=== PATIENT | male | born 1995 | race African-American/Black ===

== ENCOUNTER 2016-09-17 22:13 | Emergency (ER) | payer OTHER ==
[~2016-09-17] VITALS: Ht 180.3 cm; Wt 78.0 kg
[~2016-09-17 22:13] MED LIST: AMPH1TAB33 PO; NAPR250T57 PO; TYLE3 PO
[2016-09-17 22:15] VITALS: BP 131/73; PULSE 60; RESP 14; TEMP 98.3; O2SAT 100
[2016-09-17] MEDS ORDERED: LIDOCAINE HCL 1% 50 ML VIAL IM ONE (22:30)
[2016-09-17] MEDS ORDERED: AZITHROMYCIN PWD FOR SUSP 1 GM PACKET PO ONE (22:30)
[2016-09-17] MEDS ORDERED: cefTRIAXone 250 MG VIAL IM ONE (22:30)
--- NOTE | 2016-09-17 22:47 | PD ---
HPI Chief Complaint: Complaint Time Seen by Provider: 22:38 Travel History International Travel<30 days: No Contact w/Intl Traveler<30days: No Traveled to known affect area: No History of Present Illness HPI 21-year-old black male presents to emergency department for evaluation of a urethral discharge. He states that he is concerned that his girlfriend has been unfaithful with him. He states that he was told that she had intercourse with another male last week after they had had a fight. They've had sex since then without a condom. He denies any rashes or lesions. He does have increased urinary frequency and dysuria as well as a white urethral discharge. No fever chills. No nausea vomiting. No abdominal pain. PFSH Past Medical History ADHD: Yes Developmental Delay: No Diminished Hearing: No Immunizations Current: Yes Tetanus Vaccination: < 5 Years Past Surgical History Surgical History: No Previous Surgery Social History Alcohol Use: No Tobacco Use: No Substance Use: No Allergies-Medications (Allergen,Severity, Reaction): Coded Allergies: No Known Allergies (Verified , 09/17/16) Reported Meds & Prescriptions Reported Meds & Active Scripts Active Naprosyn (Naproxen) 250 Mg Tab 250 Mg PO BID 5 Days Tylenol #3 (Acetaminophen/Codeine Phosphate) 300 Mg/30 Mg Tab 1 Tab PO Q4HPRN FOR PAIN Reported Adderall (Amphetamine/Dextroamphetamine) 10 Mg Tab 10 Mg PO Review of Systems Except as stated in HPI: all other systems reviewed are Neg Physical Exam Narrative GENERAL: This is a well-nourished, well-developed patient, in no apparent distress. SKIN: No rashes, ecchymoses or lesions. Warm and dry. HEAD: Atraumatic. Normocephalic. EYES: PERRL, EOMI, no discharge or injection. No scleral icterus. EARS: Clear NOSE: Nasal turbinates appear normal. THROAT: Mucosa pink and moist. Airway patent. NECK: Trachea midline. supple, moves head freely. LUNGS: Clear to auscultation. CV: Regular in rhythm. ABDOMEN: Soft nontender. EXT: No clubbing cyanosis or edema. GENITOURINARY: Circumcised. Testes descended bilaterally without evidence of rotation. No lesions or erythema. Positive beige urethral discharge. Data Data Last Documented VS Vital Signs Date Time Temp Pulse Resp B/P Pulse Ox O2 Delivery O2 Flow Rate FiO2 09/17/16 22:15 98.3 60 14 131/73 100 Room Air Orders Urinalysis - C+S If Indicated (09/17/16 22:27) Gc And Chlamydia Pcr (09/17/16 22:27) Azithromycin Powd Pack (Zithromax Powd P (09/17/16 22:30) Ceftriaxone Inj (Rocephin Inj) (09/17/16 22:30) Lidocaine 1% Inj (50 Ml) (Xylocaine 1% I (09/17/16 22:30) MDM Medical Decision Making Medical Screen Exam Complete: Yes Emergency Medical Condition: Yes Medical Record Reviewed: Yes Differential Diagnosis MDM: Moderate Differential diagnoses: Chlamydia, gonorrhea, syphilis, chancroid, hepatitis, HIV, herpes Narrative Course Patient is given Rocephin 250 IM and Zithromax 1 g by mouth. This is urethritis Diagnosis Primary Impression: Urethritis Patient Instructions: General Instructions Additional Instructions: Rest. Partner notification. Follow-up with the [facility] Department for further STD testing such as HIV, syphilis and hepatitis. No intercourse until all partners treated. Always use a condom. Return to the ER if any problems. Med/Other Pt SpecificInfo: No Meds Exist/No RX given Disposition: 01 DISCHARGE HOME Condition: Arcadio Ibarra September 17, 2016 22:47
[2016-09-17 23:18] LABS: BLOOD, URINE TRACE (NEG); COMMENT (UR) CULTURE INDICATED; CULTURE IF INDICATED CULTURE INDICATED; GLUCOSE,URINE NEG (NEG); KETONE, URINE NEG (NEG); MUCUS URINE MANY /lpf (OCC); NITRITE,URINE NEG (NEG); URINE COLOR YELLOW (YELLW/STRAW)
[2016-09-18 03:07] LABS: CHLAMYDIA PCR NOT DETECTED (NOT DETECT); NEISSERIA PCR DETECTED (NOT DETECT)
== END 2016-09-17 22:56 | disposition home or self-care (01) ==
LOC: NEPD 22:13
DX: N34.2 Other urethritis (principal)
CPT/HCPCS: 81001; 87086; 87491; 87591; 96372; 99283; J0696

== ENCOUNTER 2016-10-18 20:30 | Emergency (ER) | payer SELFPAY ==
[2016-10-18 20:32] VITALS: BP 139/67; PULSE 61; RESP 16; TEMP 98.6; O2SAT 99
== END 2016-10-18 20:53 | disposition left against medical advice (07) ==
LOC: NED 20:30
DX: M25.569 Pain in unspecified knee (principal)
CPT/HCPCS: 99281

== ENCOUNTER 2017-09-06 21:05 | Emergency (ER) | payer SELFPAY ==
[~2017-09-06] VITALS: Ht 172.7 cm; Wt 65.0 kg
[2017-09-06 21:49] VITALS: BP 125/87; PULSE 61; RESP 16; TEMP 98.9; O2SAT 100
--- NOTE | 2017-09-06 22:53 | PD ---
HPI Chief Complaint: Oral / Dental Pain or Problem Time Seen by Provider: 22:49 Travel History International Travel<30 days: No Contact w/Intl Traveler<30days: No Traveled to known affect area: No History of Present Illness HPI 22-year-old male presents emergency department for evaluation of right third molar pain. Patient states he has had a bad tooth for an unknown amount of time. Pain has began to worse over the last 2-3 days. He is concerned he may have an abscess. Pain is constant, throbbing, 6 out of 10. Denies any trauma. No fever chills. He has no other symptoms to report. PFSH Past Medical History Medical History: Denies Significant Hx ADHD: Yes Developmental Delay: No Diminished Hearing: No Immunizations Current: Yes Tetanus Vaccination: Unknown Past Surgical History Surgical History: No Previous Surgery Social History Alcohol Use: Yes (occasionally) Tobacco Use: No Substance Use: No Allergies-Medications (Allergen,Severity, Reaction): Coded Allergies: No Known Allergies (Verified Adverse Reaction, Unknown, 09/06/17) Reported Meds & Prescriptions Reported Meds & Active Scripts Active Peridex Liq (Chlorhexidine Gluconate (Mouth) Liq) 0.12% Soln 15 Ml SWISH-SPIT BID Ibuprofen 600 Mg Tab 600 Mg PO Q8HR PRN Penicillin V Potassium 500 Mg Tab 500 Mg PO Q8H 10 Days Naprosyn (Naproxen) 250 Mg Tab 250 Mg PO BID 5 Days Tylenol #3 (Acetaminophen/Codeine Phosphate) 300 Mg/30 Mg Tab 1 Tab PO Q4HPRN FOR PAIN Reported Adderall (Amphetamine/Dextroamphetamine) 10 Mg Tab 10 Mg PO Review of Systems Except as stated in HPI: all other systems reviewed are Neg Physical Exam Narrative GENERAL: Well-nourished, well-developed male patient in no acute distress SKIN: Focused skin assessment warm/dry. HEAD: Normocephalic. No erythema or edema EYES: No scleral icterus. No injection or drainage. DENTAL: No loose or chipped teeth. There is a large dental carry in the right mandibular third molar. Gingival erythema and edema surrounding. No appreciable abscess. No malocclusion. NECK: Supple, trachea midline. No JVD or lymphadenopathy. CARDIOVASCULAR: Regular rate and rhythm without murmurs, gallops, or rubs. RESPIRATORY: Breath sounds equal bilaterally. No accessory muscle use. Data Data Last Documented VS Vital Signs Date Time Temp Pulse Resp B/P (MAP) Pulse Ox O2 Delivery O2 Flow Rate FiO2 09/06/17 21:49 98.9 61 16 125/87 (100) 100 Orders Orders Ed Discharge Order (09/06/17 23:02) MDM Medical Decision Making Medical Screen Exam Complete: Yes Emergency Medical Condition: Yes Medical Record Reviewed: Yes Differential Diagnosis Dental caries versus dental abscess versus pulpitis versus gingivitis versus periodontal disease Narrative Course 22-year-old male presents emergency department for evaluation of dental pain. Patient appears to have a large dental caries with associated gingival erythema and edema. Patient will be started on Pen-Vee K and provided Peridex oral rinse and pain control. He is encouraged to seek dental evaluation. He agrees to return immediately with acute worsening symptoms. Diagnosis Primary Impression: Dentalgia Additional Impression: Gingivitis Referrals: Dentist Primary Care Physician Patient Instructions: Dental Caries (DC), General Instructions Additional Instructions: Follow-up with a primary care provider Seek dental evaluation Return immediately with acute worsening symptoms Med/Other Pt SpecificInfo: Prescription(s) given Scripts Chlorhexidine Gluconate (Mouth) Liq (Peridex Liq) 0.12% Soln 15 ML SWISH-SPIT BID, #473 ML 0 Refills Prov: Judy Szymanski 09/06/17 Ibuprofen (Ibuprofen) 600 Mg Tab 600 MG PO Q8HR Y for PAIN, #30 TAB 0 Refills Prov: Judy Szymanski 09/06/17 Penicillin V Potassium (Penicillin V Potassium) 500 Mg Tab 500 MG PO Q8H for Infection for 10 Days, #30 TAB 0 Refills Prov: Judy Szymanski 09/06/17 Disposition: 01 DISCHARGE HOME Condition: Stable Judy Szymanski Sep 06, 2017 22:53
[2017-09-06] MEDS ORDERED: PERI0.126 SWISH-SPIT (23:04)
[2017-09-06] MEDS ORDERED: PENI500T PO (23:04)
[2017-09-06] MEDS ORDERED: IBUP-232 PO (23:04)
== END 2017-09-06 23:11 | disposition home or self-care (01) ==
LOC: NEPD 21:05
DX: K05.10 Chronic gingivitis, plaque induced (principal); F90.9 Attention-deficit hyperactivity disorder, unspecified type
CPT/HCPCS: 99283